=== PATIENT | male | born 1990 | race Caucasian/White ===

== ENCOUNTER 2024-04-12 00:38 | Emergency (ER) | payer OTHER ==
[2024-04-12] MEDS: Ketorolac 30 MG/ML SDV IM ONE (01:17)
== END 2024-04-12 01:23 | disposition home or self-care (01) ==
LOC: VM.ED 00:38
DX: S20.211A Contusion of right front wall of thorax, initial encounter (principal); F17.210 Nicotine dependence, cigarettes, uncomplicated; V29.99XA Rider (driver) (passenger) of other motorcycle injured in unspecified traffic accident, initial encounter
CPT/HCPCS: 96372; 99283; J1885